=== PATIENT | male | born 1995 | race Caucasian/White ===

== ENCOUNTER → 2017-07-02 15:19 | Outpatient (CLI) | payer MEDICAID | END | disposition home or self-care (01) | LOC: D.US 15:19 | DX: I82.402 Acute embolism and thrombosis of unspecified deep veins of left lower extremity (principal) ==

== ENCOUNTER 2017-09-01 22:21 | Emergency (ER) | payer MEDICAID | END 2017-09-01 22:51 | disposition home or self-care (01) | LOC: D.ER 22:21 | DX: S60.222A Contusion of left hand, initial encounter (principal); W22.8XXA Striking against or struck by other objects, initial encounter; Y93.89 Activity, other specified; Y92.89 Other specified places as the place of occurrence of the external cause ==

== ENCOUNTER 2018-01-16 16:01 | Emergency (ER) | payer MEDICAID ==
[2018-01-16 16:29] LABS: APPEARANCE CLEAR (CLEAR); BILIRUBIN NEGATIVE (NEGATIVE); COLOR DK YELLOW (YELLOW); GLUCOSE NEGATIVE (NEGATIVE); KETONE NEGATIVE (NEGATIVE); NITRITE NEGATIVE (NEGATIVE); PROTEIN NEGATIVE (NEGATIVE); UROBILINOGEN NORMAL (NORMAL)
[2018-01-16 17:06] LABS: UDS - AMPHET NEGATIVE QUAL (NEGATIVE); UDS - BARB NEGATIVE QUAL (NEGATIVE); UDS - BENZO NEGATIVE QUAL (NEGATIVE); UDS - COCAINE NEGATIVE QUAL (NEGATIVE); UDS - OPIATE NEGATIVE QUAL (NEGATIVE); UDS - PCP NEGATIVE QUAL (NEGATIVE); UDS - THC NEGATIVE QUAL (NEGATIVE)
== END 2018-01-16 18:22 | disposition home or self-care (01) ==
LOC: D.ER 16:01
PROVIDERS: Emergency Medicine
DX: R45.851 Suicidal ideations (principal)